=== PATIENT | male | born 1950 | race Caucasian/White ===

== ENCOUNTER 2021-01-16 15:15 | Emergency (ER) | payer MEDICARE ==
[~2021-01-16] VITALS: Ht 177.8 cm; Wt 106.6 kg
[2021-01-16 15:47] LABS: HEMOGLOBIN 16.8 gm/dl (14.0-17.5); RED BLOOD COUNT 5.4 M/UL (4.20-5.50); WHITE BLOOD COUNT 6.5 K/UL (4.5-11.0)
[2021-01-16] MEDS ORDERED: ZOFRAN4 MG PO (19:09)
== END 2021-01-16 21:30 | disposition home or self-care (01) ==
LOC: ER1 15:15
PROVIDERS: Physician Assistant
DX: Z23 Encounter for immunization (principal); U07.1 COVID-19; I10 Essential (primary) hypertension; E11.9 Type 2 diabetes mellitus without complications
CPT/HCPCS: 71045; 80053; 85025; 96374; 99283; J2405; M0243

== ENCOUNTER 2021-07-06 09:20 | Emergency (ER) | payer MEDICARE ==
[~2021-07-06 09:20] MED LIST: ZOFRAN4 MG PO
[2021-07-06 10:07] LABS: HEMOGLOBIN 15.7 gm/dl (14.0-17.5); RED BLOOD COUNT 5.14 M/UL (4.20-5.50); WHITE BLOOD COUNT 5.9 K/UL (4.5-11.0)
[2021-07-06 10:32] LABS: BUN/CREATININE RATIO 22 (0-10)
== END 2021-07-06 14:25 | disposition home or self-care (01) ==
LOC: ER1 09:20
PROVIDERS: Emergency Medicine
DX: U07.1 COVID-19 (principal); E11.65 Type 2 diabetes mellitus with hyperglycemia; I10 Essential (primary) hypertension
CPT/HCPCS: 0240U; 36600; 80053; 81001; 82550; 82553; 82803; 82962; 83605; 83690; 83874; 84484; 85025; 87040; 99285; Q9967